=== PATIENT | male | born 1965 | race Caucasian/White ===

== ENCOUNTER 2018-09-07 19:37 | Inpatient (IN) | payer MEDICAID ==
[~2018-09-07] VITALS: Ht 165.1 cm; Wt 50.6 kg
[~2018-09-07 19:37] MED LIST: ALBU18HF2 IH; AZIT250T PO; CLON0.1T PO
[2018-09-07] MEDS ORDERED: CefTRIAXone 2gm/D5W 50ml 50 ML IV ONE (22:40)
[2018-09-07] MEDS ORDERED: albuterol 2.5 MG/3 ML nebule CONTNEB PRN (22:40)
[2018-09-07] MEDS ORDERED: methylPREDNISolone sod succ 125mg/2ml vial IV ONE (22:40)
[2018-09-07] MEDS ORDERED: azithromycin/NS 500mg/250ml 250 ML IV ONE (22:40)
[2018-09-07 23:04] LABS: BASOPHILS # (AUTO) 0.1 X10'3 (0-0.2); BASOPHILS % (AUTO) 0.8 % (0-1); EOSINOPHILS # (AUTO) 0.1 X10'3 (0-0.9); EOSINOPHILS % (AUTO) 0.4 % (0-6); HEMATOCRIT 38.5 % (42.0-52.0); HEMOGLOBIN 13.1 g/dl (14.0-17.9); LYMPHOCYTES # (AUTO) 1.5 X10'3 (1.1-4.8); LYMPHOCYTES % (AUTO) 9.5 % (21-51); MEAN CORPUSCULAR HEMOGLOBIN 31.1 PG (27.0-31.0); MEAN CORPUSCULAR HGB CONC 34.2 g/dL (33.0-36.5); MONOCYTES # (AUTO) 0.9 X10'3 (0-0.9); MONOCYTES % (AUTO) 5.7 % (2-12); NEUTROPHILS # (AUTO) 13.6 X10'3 (1.8-7.7); NEUTROPHILS % (AUTO) 83.6 % (42-75); PLATELET COUNT 244 X10'3 (140-440); RED BLOOD COUNT 4.23 X10'6 (4.70-6.10); RED CELL DISTRIBUTION WIDTH 14.2 % (11.5-14.5); WHITE BLOOD COUNT 16.3 X10'3 (4.5-11.0)
[2018-09-07 23:17] LABS: ALANINE AMINOTRANSFERASE 23 U/L (12-78); ALBUMIN 3.6 G/DL (3.4-5.0); ALBUMIN/GLOBULIN RATIO 0.8 (1.1-1.5); ALKALINE PHOSPHATASE 53 IU/L (46-116); ANION GAP 9 (8-16); ASPARTATE AMINO TRANSFERASE 18 U/L (10-37); BILIRUBIN,TOTAL 0.5 MG/DL (0.1-1.0); BLOOD UREA NITROGEN 12 MG/DL (7-18); BUN/CREATININE RATIO 11.9 (5.4-32.0); CALCIUM 9.1 MG/DL (8.5-10.1); CHLORIDE 100 MMOL/L (99-107); CREATININE 1.01 MG/DL (0.60-1.10); GLUCOSE 135 MG/DL (70-104); POTASSIUM 4.3 MMOL/L (3.5-5.1); SODIUM 136 MMOL/L (135-145); TOTAL CARBON DIOXIDE 27.3 MMOL/L (24-32); TOTAL PROTEIN 8.3 G/DL (6.4-8.2); eGFR 78 ML/MIN
[2018-09-07 23:24] LABS: MAGNESIUM 1.8 MG/DL (1.5-2.4)
[2018-09-08] MEDS ORDERED: ondansetron/PF 4mg/2ml inj IV PRN (00:25)
[2018-09-08] MEDS ORDERED: magnesium 4gm in 100ml NS 100 ML IV PRN (00:25)
[2018-09-08] MEDS ORDERED: mag hydrox/Alum hydrox/simeth 30ml oral suspension PO PRN (00:25)
[2018-09-08] MEDS ORDERED: potassium Cl 20 mEq SR tablet PO PRN ×2 (00:25)
[2018-09-08] MEDS ORDERED: potassium Cl 40MEQ/NS 500ml 500 ML IV PRN ×2 (00:25)
[2018-09-08] MEDS ORDERED: magnesium hydroxide 30ml (MOM) UD suspension PO PRN (00:25)
[2018-09-08] MEDS ORDERED: magnesium Cl slow-release 64mg tablet PO PRN (00:25)
[2018-09-08] MEDS ORDERED: ipratropium/albuterol 3ml nebule NEB PRN (00:25)
[2018-09-08] MEDS ORDERED: magnesium 2GM in 50ml NS 50 ML IV PRN (00:25)
[2018-09-08] MEDS ORDERED: nicotine 14mg patch - 24hr TD ONE (01:15)
[2018-09-08] MEDS: normal saline 1000ml 1,000 ML IV SCH ×2 (01:24→14:37)
[2018-09-08] MEDS: methylPREDNISolone sod succ 125mg/2ml vial IV SCH ×4 (02:16→20:50)
[2018-09-08 06:44] LABS: CHOL/HDL RATIO 2.9 (0.00-4.99); CHOLESTEROL 137 MG/DL (0-200); HDL CHOLESTEROL 48 MG/DL (35-60); TRIGLYCERIDES 26 MG/DL (20-135)
[2018-09-08 06:46] LABS: LDL CHOLESTEROL 82 MG/DL (50-100)
[2018-09-08] MEDS: ipratropium/albuterol 3ml nebule NEB SCH ×5 (07:20→23:00)
[2018-09-08] MEDS: K and/or MAG REPLACEMENT MC SCH (08:00)
[2018-09-08] MEDS: nicotine 14mg patch - 24hr TD SCH (08:00)
[2018-09-08] MEDS: enoxaparin 40mg/0.4ml syringe SUBCUT SCH (08:09)
[2018-09-08] MEDS ORDERED: METH-603 PO (10:09)
--- NOTE | 2018-09-08 10:36 | NUR ---
Spoke with jenaro in pharmacy to change time of methadone for today. Jenaro stated that he would change time. Will administer when able.
[2018-09-08] MEDS: methadone 10mg tablet PO SCH (10:46)
--- NOTE | 2018-09-08 10:55 | NUR ---
vascular in progress.
--- NOTE | 2018-09-08 13:55 | NUR ---
Patient assisted to a position of comfort on hospital bed.
[2018-09-08 15:00] VITALS: BP 105/52
--- NOTE | 2018-09-08 18:00 | NUR ---
Problems reprioritized. Patient report given, questions answered & plan of care reviewed with Beth HERNANDEZ.
[2018-09-08 20:00] VITALS: BP 95/50
[2018-09-08] MEDS: lactobacillus rhamnosus 10,000 MMU CELLS/CAPSULE PO SCH (20:49)
[2018-09-08] MEDS ORDERED: temazepam 15mg capsule PO PRN (21:00)
[2018-09-08] MEDS ORDERED: CefTRIAXone/D5W-Rocephin 1gm 50 ML IV SCH (21:00)
[2018-09-08] MEDS ORDERED: azithromycin/NS 500mg/250ml 250 ML IV SCH (22:00)
[2018-09-09] VITALS: BP 108/51
[2018-09-09] MEDS: methylPREDNISolone sod succ 125mg/2ml vial IV SCH ×3 (02:21→15:18)
[2018-09-09] MEDS: normal saline 1000ml 1,000 ML IV SCH (04:47)
[2018-09-09 05:55] LABS: BASOPHILS # (AUTO) 0.1 X10'3 (0-0.2); BASOPHILS % (AUTO) 0.3 % (0-1); EOSINOPHILS % (AUTO) 0 % (0-6); HEMATOCRIT 34.7 % (42.0-52.0); HEMOGLOBIN 11.4 g/dl (14.0-17.9); LYMPHOCYTES # (AUTO) 0.9 X10'3 (1.1-4.8); MEAN CORPUSCULAR HEMOGLOBIN 30.3 PG (27.0-31.0); MEAN PLATELET VOLUME 7.6 FL (7.4-10.4); MONOCYTES # (AUTO) 0.6 X10'3 (0-0.9); MONOCYTES % (AUTO) 3.3 % (2-12); NEUTROPHILS # (AUTO) 16.5 X10'3 (1.8-7.7); NEUTROPHILS % (AUTO) 91.4 % (42-75); PLATELET COUNT 214 X10'3 (140-440); RED BLOOD COUNT 3.77 X10'6 (4.70-6.10); RED CELL DISTRIBUTION WIDTH 14.1 % (11.5-14.5)
[2018-09-09 05:59] LABS: ALANINE AMINOTRANSFERASE 13 U/L (12-78); ALBUMIN 2.6 G/DL (3.4-5.0); ALBUMIN/GLOBULIN RATIO 0.6 (1.1-1.5); ALKALINE PHOSPHATASE 42 IU/L (46-116); ANION GAP 7 (8-16); ASPARTATE AMINO TRANSFERASE 12 U/L (10-37); BILIRUBIN,TOTAL 0.2 MG/DL (0.1-1.0); BLOOD UREA NITROGEN 18 MG/DL (7-18); BUN/CREATININE RATIO 22.5 (5.4-32.0); CALCIUM 8.7 MG/DL (8.5-10.1); CHLORIDE 109 MMOL/L (99-107); GLUCOSE 147 MG/DL (70-104); MAGNESIUM 1.9 MG/DL (1.5-2.4); PHOSPHORUS 2.5 MG/DL (2.3-4.5); POTASSIUM 4.3 MMOL/L (3.5-5.1); SODIUM 140 MMOL/L (135-145); TOTAL CARBON DIOXIDE 24.1 MMOL/L (24-32); TOTAL PROTEIN 6.8 G/DL (6.4-8.2); eGFR > 90 ML/MIN
--- NOTE | 2018-09-09 06:06 | NUR ---
Problems reprioritized. Patient report given, questions answered & plan of care reviewed with Ame HERNANDEZ. Addendum: 09/09/18 at 0607 by Beth Miranda RN Amended: Links added.
[2018-09-09 07:00] VITALS: BP 123/71
--- NOTE | 2018-09-09 07:03 | NUR ---
Patient in room [facility]. I have received report from Beth HERNANDEZ and had the opportunity to ask questions and assume patient care.
[2018-09-09] MEDS: ipratropium/albuterol 3ml nebule NEB SCH ×2 (07:05→10:43)
[2018-09-09] MEDS: nicotine 14mg patch - 24hr TD SCH (07:55)
[2018-09-09] MEDS: enoxaparin 40mg/0.4ml syringe SUBCUT SCH (07:55)
[2018-09-09] MEDS: lactobacillus rhamnosus 10,000 MMU CELLS/CAPSULE PO SCH (07:56)
[2018-09-09] MEDS: methadone 10mg tablet PO SCH (07:56)
[2018-09-09] MEDS ORDERED: methadone 10mg tablet PO SCH (08:00)
[2018-09-09] MEDS: K and/or MAG REPLACEMENT MC SCH (08:00)
[2018-09-09] MEDS ORDERED: AZIT500T5 PO (11:44)
[2018-09-09] MEDS ORDERED: NICO-631 TD (11:44)
[2018-09-09] MEDS ORDERED: IPRA3AMP9 NEB (11:44)
[2018-09-09] MEDS ORDERED: PRED20TA PO (11:44)
[2018-09-09] MEDS ORDERED: AMOX-580 PO (11:44)
[2018-09-09 12:00] VITALS: BP 125/47
--- NOTE | 2018-09-09 12:31 | NUR ---
Discharge written patient waiting for nebulizer delivery, patient wants delivered here.
[2018-09-09] MEDS ORDERED: pneumococcal 23-VAL P-sac vacc 25 mcg/0.5ml vial IMVAC ONE (15:15)
--- NOTE | 2018-09-09 16:05 | NUR ---
Patients discharge instructions reviewed with patient and patient verbalized understanding. Patient was given Pneumonia vaccine to Right deltoid. Patients IV dc'd for discharge cannula intact. Patient nebulizer was delivered by [facility], and medications delivered by [facility]. Patient was wheelchaired to vehicle by auxillary. Addendum: 09/09/18 at 1827 by Ame Correia RN Patient states he has all his belongings
[2018-09-10] MEDS ORDERED: pneumococcal 23-VAL P-sac vacc 25 mcg/0.5ml vial IMVAC ONE (10:00)
== END 2018-09-09 16:08 | disposition home or self-care (01) | DRG 133 ==
LOC: ER 19:38 → ED HOLD 09-08 15:10 → SUR 3N 09-08 15:15
PROVIDERS: ADMIT Family Medicine; ATTEND Family Medicine
PROC: 3E0234Z Introduction of Serum, Toxoid and Vaccine into Muscle, Percutaneous Approach (ICD-10-PCS; principal; 2018-09-09)
DX: J96.01 Acute respiratory failure with hypoxia (principal); J18.1 Lobar pneumonia, unspecified organism; J44.0 Chronic obstructive pulmonary disease with (acute) lower respiratory infection; I65.21 Occlusion and stenosis of right carotid artery; G89.29 Other chronic pain; J44.1 Chronic obstructive pulmonary disease with (acute) exacerbation; F17.210 Nicotine dependence, cigarettes, uncomplicated; M54.9 Dorsalgia, unspecified; Z79.891 Long term (current) use of opiate analgesic; Z23 Encounter for immunization; Z88.2 Allergy status to sulfonamides; Z88.5 Allergy status to narcotic agent; Z98.1 Arthrodesis status; Z79.899 Other long term (current) drug therapy; Z71.6 Tobacco abuse counseling
CPT/HCPCS: 36415; 71045; 80053; 80061; 83735; 83880; 84100; 85025; 87070; 90732; 93880; 94640; 94667; 94760; 96365; 96366; 96368; 96372; 96375; 99285; G0378; J0456; J0696; J1650; J2930; J7030; Q2037

== ENCOUNTER 2018-10-05 12:27 | Emergency (ER) | payer MEDICAID ==
[~2018-10-05] VITALS: Ht 162.6 cm; Wt 63.8 kg
[~2018-10-05 12:27] MED LIST changes: +AMOX-580 PO; -AZIT250T PO; +AZIT500T5 PO; -CLON0.1T PO; +IPRA3AMP9 NEB; +METH-603 PO; +NICO-631 TD; +PRED20TA PO
--- NOTE | 2018-10-05 12:45 | NUR ---
NOT IN LOBBY
--- NOTE | 2018-10-05 13:07 | NUR ---
NOT IN LOBBY
[2018-10-05 14:38] LABS: CLARITY,URINE CLEAR (Clear); COLOR,URINE YELLOW (Yellow); GLUCOSE, URINE NEGATIVE (Neg); KETONES,URINE TRACE mg/dl (Neg); LEUKOCYTE ESTERASE ,URINE NEGATIVE (Neg); NITRITES, URINE NEGATIVE (Neg); OCCULT BLOOD,URINE NEGATIVE (Neg); PROTEIN,URINE NEGATIVE (Neg); UROBILINOGEN,URINE 0.2 E.U/dL (0.2-1.0)
[2018-10-05 14:42] LABS: BASOPHILS % (AUTO) 0.4 % (0-1); EOSINOPHILS # (AUTO) 0.1 X10'3 (0-0.9); EOSINOPHILS % (AUTO) 1.1 % (0-6); HEMATOCRIT 38.6 % (42.0-52.0); HEMOGLOBIN 13.2 g/dl (14.0-17.9); LYMPHOCYTES # (AUTO) 1.2 X10'3 (1.1-4.8); LYMPHOCYTES % (AUTO) 17.9 % (21-51); MEAN CORPUSCULAR HEMOGLOBIN 31.2 PG (27.0-31.0); MEAN CORPUSCULAR HGB CONC 34.2 g/dL (33.0-36.5); MEAN CORPUSCULAR VOLUME 91.3 FL (78-98); MEAN PLATELET VOLUME 7.7 FL (7.4-10.4); MONOCYTES # (AUTO) 0.3 X10'3 (0-0.9); MONOCYTES % (AUTO) 4.5 % (2-12); NEUTROPHILS # (AUTO) 4.9 X10'3 (1.8-7.7); NEUTROPHILS % (AUTO) 76.1 % (42-75); PLATELET COUNT 186 X10'3 (140-440); RED BLOOD COUNT 4.22 X10'6 (4.70-6.10); RED CELL DISTRIBUTION WIDTH 14.5 % (11.5-14.5); WHITE BLOOD COUNT 6.4 X10'3 (4.5-11.0)
[2018-10-05 14:46] LABS: UA COLLECTION TYPE CLN CATCH MIDSTREAM
[2018-10-05 14:49] LABS: URINE AMPHETAMINE SCREEN NEGATIVE (Neg); URINE BARBITUATE SCREEN NEGATIVE (Neg); URINE BENZODIAZEPINES SCREEN NEGATIVE (Neg); URINE CANNABINOID SCREEN NEGATIVE (Neg); URINE COCAINE SCREEN NEGATIVE (Neg); URINE METHADONE SCREEN POSITIVE (Neg); URINE OPIATE SCREEN POSITIVE (Neg); URINE PHENCYCLIDINE SCREEN NEGATIVE (Neg)
[2018-10-05 15:00] LABS: ALANINE AMINOTRANSFERASE 23 U/L (12-78); ALBUMIN 3.2 G/DL (3.4-5.0); ALBUMIN/GLOBULIN RATIO 0.8 (1.1-1.5); ALKALINE PHOSPHATASE 54 IU/L (46-116); ANION GAP 7 (8-16); ASPARTATE AMINO TRANSFERASE 16 U/L (10-37); BILIRUBIN,TOTAL 0.3 MG/DL (0.1-1.0); BLOOD UREA NITROGEN 11 MG/DL (7-18); BUN/CREATININE RATIO 12.9 (5.4-32.0); CALCIUM 8.6 MG/DL (8.5-10.1); CHLORIDE 104 MMOL/L (99-107); CREATININE 0.85 MG/DL (0.60-1.10); GLUCOSE 155 MG/DL (70-104); LIPASE 60 U/L (73-393); SODIUM 139 MMOL/L (135-145); TOTAL CARBON DIOXIDE 28.4 MMOL/L (24-32); TOTAL PROTEIN 7.3 G/DL (6.4-8.2); eGFR > 90 ML/MIN
[2018-10-05 15:21] VITALS: BP 116/63
== END 2018-10-05 15:22 | disposition home or self-care (01) ==
LOC: ER 12:27
DX: E86.0 Dehydration (principal); R53.83 Other fatigue; R42 Dizziness and giddiness; J44.9 Chronic obstructive pulmonary disease, unspecified; G89.29 Other chronic pain; Z98.890 Other specified postprocedural states; Z88.2 Allergy status to sulfonamides; Z88.5 Allergy status to narcotic agent; Z79.899 Other long term (current) drug therapy
CPT/HCPCS: 36415; 80053; 80305; 81003; 83690; 85025; 93005; 99284

== ENCOUNTER 2019-07-12 20:30 | Emergency (ER) | payer MEDICAID ==
[~2019-07-12] VITALS: Ht 170.2 cm; Wt 70.0 kg
[~2019-07-12 20:30] MED LIST changes: -AMOX-580 PO; -AZIT500T5 PO; +AZIT500T9 PO; -PRED20TA PO
[2019-07-12] MEDS ORDERED: PENI500T2 PO (21:40)
[2019-07-12] MEDS ORDERED: ALBU8HFA PO (22:00)
[2019-07-12 22:02] VITALS: BP 101/64
== END 2019-07-12 22:03 | disposition home or self-care (01) ==
LOC: ER 20:31
DX: K08.89 Other specified disorders of teeth and supporting structures (principal); J32.9 Chronic sinusitis, unspecified; B97.89 Other viral agents as the cause of diseases classified elsewhere; J44.9 Chronic obstructive pulmonary disease, unspecified; G89.29 Other chronic pain; F17.200 Nicotine dependence, unspecified, uncomplicated; Z72.89 Other problems related to lifestyle; Z88.2 Allergy status to sulfonamides; Z88.5 Allergy status to narcotic agent; Z79.899 Other long term (current) drug therapy
CPT/HCPCS: 99283

== ENCOUNTER 2019-07-28 19:28 | Emergency (ER) | payer MEDICAID ==
[~2019-07-28] VITALS: Ht 165.1 cm; Wt 68.2 kg
[~2019-07-28 19:28] MED LIST changes: +ALBU8HFA PO
[2019-07-28 19:49] VITALS: BP 124/60
--- NOTE | 2019-07-28 20:10 | NUR ---
Dr Greene at bedside.
[2019-07-28] MEDS ORDERED: DOXY100C77 PO (20:13)
[2019-07-28] MEDS ORDERED: acetaminophen 325mg tablet PO ONE (20:15)
== END 2019-07-28 20:33 | disposition home or self-care (01) ==
LOC: ER 19:29
DX: J32.9 Chronic sinusitis, unspecified (principal); J44.9 Chronic obstructive pulmonary disease, unspecified; G89.29 Other chronic pain; Z72.89 Other problems related to lifestyle; Z98.890 Other specified postprocedural states; Z88.2 Allergy status to sulfonamides; Z88.5 Allergy status to narcotic agent; Z79.899 Other long term (current) drug therapy
CPT/HCPCS: 99283

== ENCOUNTER 2021-05-26 14:53 | Emergency (ER) | payer MEDICAID ==
[~2021-05-26 14:53] MED LIST changes: -ALBU8HFA PO
--- NOTE | 2021-05-26 15:31 | NUR ---
Called to triage for second time, not in lobby
== END 2021-05-26 16:20 | disposition left against medical advice (07) ==
LOC: ER 14:54
DX: K08.89 Other specified disorders of teeth and supporting structures (principal); Z53.21 Procedure and treatment not carried out due to patient leaving prior to being seen by health care provider

== ENCOUNTER 2022-10-07 20:15 | Emergency (ER) | payer MEDICAID ==
[~2022-10-07] VITALS: Ht 165.1 cm; Wt 75.0 kg
[2022-10-07 20:51] VITALS: BP 121/73
== END 2022-10-08 00:18 | disposition left against medical advice (07) ==
LOC: ER 20:16
DX: R09.89 Other specified symptoms and signs involving the circulatory and respiratory systems (principal); Z53.21 Procedure and treatment not carried out due to patient leaving prior to being seen by health care provider
CPT/HCPCS: 99281

== ENCOUNTER 2023-11-20 22:16 | Emergency (ER) | payer MEDICAID ==
[~2023-11-20] VITALS: Ht 167.6 cm; Wt 70.5 kg
[2023-11-20 22:38] VITALS: BP 119/67; PULSE 76; RESP 14; TEMP 98.5; O2SAT 99
== END 2023-11-20 23:55 | disposition left against medical advice (07) ==
LOC: ER 22:17
DX: M25.521 Pain in right elbow (principal); Z53.21 Procedure and treatment not carried out due to patient leaving prior to being seen by health care provider